=== PATIENT | male | born 1995 | race African-American/Black ===

== ENCOUNTER 2025-05-15 16:53 | Emergency (ER) | payer SELFPAY ==
[~2025-05-15] VITALS: Ht 167.6 cm; Wt 86.0 kg
[2025-05-15 16:55] VITALS: BP 118/79; PULSE 109; RESP 17; TEMP 36.9; O2SAT 97
[2025-05-15 18:22] LABS: BASOPHILS % 0.6 % (0.0-2.0); EOSINOPHILS % 0.4 % (0.0-5.0); HEMATOCRIT. 40.6 % (42.0-52.0); HEMOGLOBIN. 13.4 g/dL (14.0-18.0); LYMPHOCYTES % 21.8 % (20.0-50.0); MEAN PLATELET VOLUME 7.5 fl (7.4-10.4); MONOCYTES % 7.6 % (2.0-8.0); NEUTROPHILS % 69.6 % (40.0-76.0); PLATELET 334 x1000/uL (130-400); RED BLOOD CELL COUNT 4.56 mill/uL (4.7-6.1); RED CELL DISTRIBUTION WIDTH 13.3 % (11.6-14.6)
[2025-05-15] MEDS: LORAZEPAM 1MG TABLET PO ONE (18:40)
[2025-05-15 18:48] LABS: CREATININE 1.3 mg/dL (0.6-1.3); ETHANOL BLOOD < 10 mg/dL (<10); UREA NITROGEN BLOOD 18 mg/dL (9-23)
== END 2025-05-15 18:43 | disposition home or self-care (01) ==
LOC: ER 16:53
DX: T40.711A Poisoning by cannabis, accidental (unintentional), initial encounter (principal); F12.90 Cannabis use, unspecified, uncomplicated; F12.929 Cannabis use, unspecified with intoxication, unspecified; Y92.89 Other specified places as the place of occurrence of the external cause
CPT/HCPCS: 36415; 80048; 80320; 85025; 99283; G0480